=== PATIENT | male | born 1985 | race Caucasian/White ===

== ENCOUNTER 2025-04-29 08:10 | Outpatient (REF) | payer BC, SELFPAY ==
--- NOTE | ~2025-04-29 | XR_ITS ---
XR KNEE ARVIND 3V HISTORY: Bilateral knee pain. COMPARISON: None. TECHNIQUE: AP , lateral, and patellofemoral views each knee. FINDINGS: RIGHT KNEE: No fracture, dislocation, or suspicious bone lesion. Joint spaces are normal in all 3 compartments. Normal patellar alignment. Minimal lateral patellar tilt. No evidence of joint effusion. Soft tissues appear normal. LEFT KNEE: No fracture, dislocation, or suspicious bone lesion. Joint spaces are normal in all 3 compartments. Normal patellar alignment. Minimal lateral patellar tilt. No evidence of joint effusion. Soft tissues appear normal. XR/XR Knee Arvind 3V IMPRESSION: 1. Essentially normal bilateral knees. Electronically signed by: Oliver Stapleton MD 04/29/2025 02:47 PM EDT
== END 2025-04-29 08:11 | disposition home or self-care (01) ==
LOC: HO.HOSX 08:10
PROVIDERS: Visit Provider Orthopaedic Surgery
DX: S83.242A Other tear of medial meniscus, current injury, left knee, initial encounter (principal); Y93.66 Activity, soccer
CPT/HCPCS: 73562

== ENCOUNTER 2025-04-29 13:33 | Outpatient (AMB) | payer BC, SELFPAY ==
--- NOTE | 2025-04-29 14:06 | MHC.OFFVIS ---
Vital Signs 04/29/25 14:12 Height 5 ft 9 in Weight 260 lb BMI 38.4 Intake Visit Reasons: Bilateral knee pain and giving way Intake Note: Suhail is a 39 year old male who presents today as new patient for bilateral knee pain and giving way, left greater than right. Patient states that for the past ten years he has had bilateral knee pain but for the past three he has noticed that the knee pain now radiates behind the knee. He added that he is very active and try's to do at home exercises, attend the gym but is limited due to the pain. He states that he would like to discuss his ankle pain as well. He has failed the last 6 weeks of conservative treatment which has included Tylenol, anti-inflammatory medicines, physical therapy exercises and a home exercise program. He states that his left knee will give out several times per day. The patient states that he did injure his left knee while playing soccer and baseball as a youngster. 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 Vital Signs: BMI result Body Mass Index 38.4 Const Other: Well-nourished well-developed very friendly male awake alert and oriented x3 in no acute distress Extrem Other: Bilateral knee examination shows minimal effusions, minimal crepitus with range of motion, tenderness along his medial joint lines, positive Blank's test, no instability Results Reviewed Results Reviewed: X-rays of the patient's bilateral knee show minimal diffuse joint space narrowing, no acute bony abnormalities Assessment & Plan Assessment & Plan (1) Tear of medial meniscus of left knee: Code(s): S83.242A - Other tear of medial meniscus, current injury, left knee, initial encounter Category: Medical Plan Mr. Quach presents with progressively worsening left knee pain and mechanical symptoms most likely due to a medial meniscus tear. Thus, I will send the patient for an MRI of his left knee for further evaluation. The patient also complains of bilateral foot and ankle pain. I will refer him to the podiatry department here at [facility]. I will see him back after his MRI is completed to discuss the findings and treatment options. Feel free to call me at any time should questions regarding his orthopedic management arise. I spent 21 minutes in reviewing the patient's records and imaging studies, seeing the patient and documenting in the medical record. Orders: Orders MR knee LT wo con 04/30/25 S83.242A - Other tear of medial meniscus, current injury, left knee, initial encounter XR Knee Arvind 3V Today M25.561 - Pain in right knee, M25.562 - Pain in left knee Referrals Podiatry Referral M79.671 - Pain in right foot, M79.672 - Pain in left foot Coding Level of Care Code New Pt Level 3 (90880) Complex EM visit Add On G2211 Diagnoses Tear of medial meniscus of left knee S83.242A
[2025-04-29 14:12] VITALS: BMI 38.4
== END 2025-04-29 14:22 | disposition home or self-care (01) ==
LOC: HO.HOS 13:34
PROVIDERS: Visit Provider Orthopaedic Surgery
DX: S83.242A Other tear of medial meniscus, current injury, left knee, initial encounter (principal)
CPT/HCPCS: 99203

== ENCOUNTER → 2025-04-29 13:38 | Outpatient (BNV) | payer BC, SELFPAY | PROVIDERS: Visit Provider Radiology Diagnostic Radiology | DX: M25.561 Pain in right knee (principal); M25.562 Pain in left knee | CPT/HCPCS: 73562 ==

== ENCOUNTER 2025-05-14 12:59 | Outpatient (AMB) | payer BC, SELFPAY ==
[2025-05-14 13:32] VITALS: BMI 38.4
--- NOTE | 2025-05-14 13:32 | A.OFFVIS_ITS ---
Vital Signs 05/14/25 13:32 Height 5 ft 9 in Weight 260 lb BMI 38.4 Intake Visit Reasons: Pain in right foot Intake Note: Issac is a 39 year old male who presents to the office today for a new patient visit referred by his Orthopedist Dr. Banegas for Pain in the right foot. Pt states he experiences pain in both of his feet on the plantar aspect and ankle. Pain has been going on for about 4-5 years. He states he has tried ankle braces, epson salt soaks and has found temporary relief. No recent imaging in patients chart Allergies aspirin (ASPIRIN) Allergy (Unknown, Verified 05/14/25 13:33) UNKNOWN codeine (CODEINE) Allergy (Unknown, Verified 05/14/25 13:33) UNKNOWN Penicillins (PENICILLINS) Allergy (Unknown, Verified 05/14/25 13:33) UNKNOWN HPI HPI Pain in right foot: Details: 39-year-old male with past medical history of bilateral knee pain presents for bilateral ankle and foot pain. Patient notes a history of bilateral lower extremity pain that started approximately 5 years ago and has slowly worsened. Denies any acute injuries or falls. He does note a history of hyperextending his ankles 20 years ago during college however he never had it treated at that time. The patient complains of pain to the back of his heel on his right ankle and the ball of his foot on his left foot. He also notes pain to the bottom of his heels both feet. He states he has tried several different kinds of shoes and has not found significant relief between various sneakers. 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 States he has not worked out or played sports in years. 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 Neuro: Protective sensation grossly intact to bilateral extremities MSK: Moderate tenderness on palpation of the posterior tibial tendon retromalleolar region right ankle, Achilles tendon insertional proximally for 2 cm from the insertion bilateral Achilles, and mild tenderness on palpation of the plantar fascia insertion bilateral heels. Moderate tenderness on palpation of the submet 2 through 4 region of the left forefoot. Rigid high arch cavus deformity right foot, moderate high arch cavus deformity left foot which corrects on weight-bearing. Neutral heel alignment bilateral heels on weight-bearing. Patient able to perform double heel rise, single heel rise on left lower extremity, unable to perform heel rise right lower extremity. Muscle strength 5/5 to all compartments left ankle except 4+/5 on inversion to bilateral ankles. Assessment & Plan Assessment & Plan (1) Cavus deformity of both feet: Code(s): Q66.71 - Congenital pes cavus, right foot; Q66.72 - Congenital pes cavus, left foot Category: Medical Plan: * Educated the patient on their foot type. Explained that their high arch foot type (Cavus feet) can lead to altered weight distribution, resulting in increased pressure on the heel and forefoot. Patients may experience symptoms such as pain, callus formation, tendinitis, instability, lateral ankle sprains, and, in some cases, development of digital deformities (e.g., claw toes or hammertoes). Discussed the importance of shoe type with heel and forefoot padding and support. * He was recommended aetrex high arch orthotics with metatarsal pad support. He may require custom foot orthoses in the future. * Rx bilateral weight-bearing foot/ankle/calc x-rays. * Discussed that he has rigid high arch feet with symptomatic forefoot, heel, and ankle tendonitis. He may require surgical reconstruction of his high arch in the near future. We recommended exhausting conservative treatment first with the use of orthotics, bracing, and physical therapy. (2) Metatarsalgia of both feet: Code(s): M77.41 - Metatarsalgia, right foot; M77.42 - Metatarsalgia, left foot Category: Medical Plan: * Recommended orthotics with metatarsal padding (3) Achilles tendinitis: Code(s): M76.60 - Achilles tendinitis, unspecified leg Category: Medical Qualifiers: Laterality: bilateral Qualified Code(s): M76.61 - Achilles tendinitis, right leg; M76.62 - Achilles tendinitis, left leg Plan: * Recommended range of motion and stretching exercises * Patient deferred physical therapy at this time. We will refer him at next visit if he has minimal relief. * Rx Medrol Dosepak * Rx Celebrex, to be started after he completes the Dosepak. * May require MRI right ankle to r/o intra-substance tearing (4) Posterior tibial tendinitis, right leg: Code(s): M76.821 - Posterior tibial tendinitis, right leg Category: Medical Plan: * Recommended range of motion and stretching exercises (5) Tinea pedis: Code(s): B35.3 - Tinea pedis Category: Medical Qualifiers: Laterality: bilateral Qualified Code(s): B35.3 - Tinea pedis Plan: * Rx clotrimazole betamethasone Orders: Orders XR Foot Arvind 3V Today M77.41 - Metatarsalgia, right foot, M77.42 - Metatarsalgia, left foot XR Calcaneus Arvind min 2V Today Q66.71 - Congenital pes cavus, right foot, Q66.72 - Congenital pes cavus, left foot XR Ankle Arvind min 3V Today M76.60 - Achilles tendinitis, unspecified leg Medications: New clotrimazole-betamethasone 1-0.05 % 1 appl topical BID 15 grams 2RF athlete's foot 4 weeks B35.3 - Tinea pedis methylprednisolone (Medrol (Alex)) Take 6 tablets on day 1, 5 tablets on day 2, 4 tablets on day 3, 3 tablets on day 4, 2 tablets on day 5, and 1 tablet on day 6. 4 mg PO DAILY 21 ea 0RF tendinitis celecoxib (Celebrex) 200 mg PO BID PRN 20 caps 1RF pain (scale score 4-6) Coding Level of Care Code New Pt Level 4 (19097) Diagnoses Cavus deformity of both feet Q66.71; Q66.72 Metatarsalgia of both feet M77.41; M77.42 Achilles tendinitis of both lower extremities M76.61; M76.62 Laterality: bilateral Posterior tibial tendinitis, right leg M76.821 Tinea pedis of both feet B35.3 Laterality: bilateral Time Spent (min) 45
== END 2025-05-14 14:03 | disposition home or self-care (01) ==
LOC: HO.HPODS 13:00
PROVIDERS: Visit Provider Student in an Organized Health Care Education/Training Program
DX: Q66.71 Congenital pes cavus, right foot (principal); Q66.72 Congenital pes cavus, left foot; M77.41 Metatarsalgia, right foot; M77.42 Metatarsalgia, left foot; M76.61 Achilles tendinitis, right leg; M76.62 Achilles tendinitis, left leg; M76.821 Posterior tibial tendinitis, right leg; B35.3 Tinea pedis
CPT/HCPCS: 99204

== ENCOUNTER 2025-05-15 12:41 | Outpatient (REF) | payer BC, SELFPAY ==
--- NOTE | ~2025-05-15 | XR_ITS ---
EXAMINATION: XR ANKLE, bilateral CLINICAL INFORMATION: M76.60 - Achilles tendinitis, unspecified leg COMPARISON: None available. TECHNIQUE: AP, lateral, and mortise views lower extremity joint, ankle. FINDINGS: RIGHT: Ankle mortise is congruent. There is no widening of the syndesmosis. Talar dome is intact. There is a moderate sized Achilles calcaneal enthesophyte(s). LEFT: Ankle mortise is congruent. There is no widening of the syndesmosis. Talar dome is intact. There is a moderate sized Achilles calcaneal enthesophyte(s). XR/XR Ankle Arvind min 3V IMPRESSION: Unremarkable ankle x-ray. Electronically signed by: James Coffman MD 05/15/2025 01:18 PM EDT
--- NOTE | ~2025-05-15 | XR_ITS ---
Exam: XR FOOT 3 OR MORE VIEWS BILATERAL, bilateral foot x-rays TECHNIQUE: AP, OBL and lateral views lower extremity, bilateral feet INDICATION: M77.41 - Metatarsalgia, right foot COMPARISON: None available. FINDINGS: RIGHT FOOT: Joint spaces are preserved. There are no osteophytes. No fracture is identified. There is no joint diastases or malalignment. LEFT FOOT: Joint spaces are preserved. There are no osteophytes. No fracture is identified. There is no joint diastases or malalignment. XR/XR Foot Arvind 3V IMPRESSION: Right foot: Unremarkable Left foot: Unremarkable Electronically signed by: James Coffman MD 05/15/2025 01:20 PM EDT RP
--- NOTE | ~2025-05-15 | XR_ITS ---
Exam:CR Xr Calcaneus Arvind Min 2v Technique: Axial and lateral view, bilateral calcaneus INDICATION: Q66.71 - Congenital pes cavus, right foot Prior: None FINDINGS: Right Moderate size enthesophyte is present at the Achilles attachment on calcaneus. No abnormal sclerosis or lucency is seen within the bony elements. No degenerative changes are identified otherwise. Left: Moderate size enthesophyte is present at the Achilles attachment on calcaneus. No degenerative changes are identified otherwise. No abnormal sclerosis or lucency is seen within the bony elements. XR/XR Calcaneus Arvind min 2V IMPRESSION: Moderate sized Achilles tendon calcaneal spurs Electronically signed by: James Coffman MD 05/15/2025 01:16 PM EDT
== END 2025-05-15 12:42 | disposition home or self-care (01) ==
LOC: HO.XRAY 12:41
PROVIDERS: Visit Provider Student in an Organized Health Care Education/Training Program
DX: M77.41 Metatarsalgia, right foot (principal); M77.42 Metatarsalgia, left foot; Q66.71 Congenital pes cavus, right foot; Q66.72 Congenital pes cavus, left foot
CPT/HCPCS: 73610; 73630; 73650

== ENCOUNTER → 2025-05-15 12:46 | Outpatient (BNV) | payer BC, SELFPAY | PROVIDERS: Visit Provider Radiology Diagnostic Radiology | DX: M76.61 Achilles tendinitis, right leg (principal); M76.62 Achilles tendinitis, left leg; M77.41 Metatarsalgia, right foot; M77.31 Calcaneal spur, right foot; M77.32 Calcaneal spur, left foot | CPT/HCPCS: 73610; 73630; 73650 ==

== ENCOUNTER → 2025-05-24 09:26 | Outpatient (BNV) | payer BC, SELFPAY | PROVIDERS: Visit Provider Radiology Diagnostic Ultrasound | DX: S83.242A Other tear of medial meniscus, current injury, left knee, initial encounter (principal); M23.032 Cystic meniscus, other medial meniscus, left knee | CPT/HCPCS: 73721 ==

== ENCOUNTER 2025-05-24 09:33 | Outpatient (REF) | payer BC, SELFPAY ==
--- NOTE | ~2025-05-24 | MR_ITS ---
EXAMINATION: MR KNEE WITHOUT CONTRAST, LEFT CLINICAL INFORMATION: Medial meniscal tear COMPARISON: X-ray 04/29/2025 TECHNIQUE: MRI of the knee without contrast was performed using routine sequences on a high-field scanner. FINDINGS: MENISCI: Medial Meniscus: Intact Lateral Meniscus: Horizontal and superior surface tear in the body. Small subjacent para meniscal cyst. Degeneration in the body, with fraying/ill-defined tear of the superior and inferior articular surface. There is a para meniscal cyst along the peripheral aspect of the posterior horn. LIGAMENTS: Cruciate: Intact Collateral: Intact EXTENSOR MECHANISM: Intact ARTICULAR CARTILAGE/BONE: Patellofemoral Compartment: No significant chondral loss Medial Compartment: No significant chondral loss Lateral Compartment: No significant chondral loss No fracture. No suspicious bony lesion. JOINT FLUID AND BURSAE: Small joint fluid. Trace Xie's cyst. Popliteus muscle and tendon are intact. MR/MR knee LT wo con IMPRESSION: * Tear of the lateral meniscal body and posterior horn. Subjacent para meniscal cysts. * Additional findings/details as above Electronically signed by: Freddie Wong MD 05/25/2025 04:32 PM [facility] [place]
== END 2025-05-24 09:34 | disposition home or self-care (01) ==
LOC: HO.MRI 09:33
PROVIDERS: Visit Provider Orthopaedic Surgery
DX: S83.242A Other tear of medial meniscus, current injury, left knee, initial encounter (principal)
CPT/HCPCS: 73721

== ENCOUNTER 2025-06-04 11:22 | Outpatient (AMB) | payer BC, SELFPAY ==
--- NOTE | 2025-06-04 11:31 | MHC.OFFVIS ---
Vital Signs 06/04/25 12:58 Height 5 ft 9 in Weight 260 lb BMI 38.4 Intake Visit Reasons: fu pain on right foot Intake Note: Issac is a 39 year old male who presents to the office today for a follow up for bilateral Achilles tendinitis, pain, and high arches. Patient was advised at last visit to start range of motion and stretching exercises and metatarsal pads. X rays ordered and in patient?s chart. Patient reports he has seen a slight improvement since his last visit as he mentions now he is able to put his feet on the ground with no pain. Allergies aspirin (ASPIRIN) Allergy (Unknown, Verified 06/04/25 12:59) UNKNOWN codeine (CODEINE) Allergy (Unknown, Verified 06/04/25 12:59) UNKNOWN Penicillins (PENICILLINS) Allergy (Unknown, Verified 06/04/25 12:59) UNKNOWN HPI HPI fu pain on right foot: Details: 39-year-old male with past medical history of bilateral knee pain returns for bilateral ankle and foot pain. He completed the medrol dose pack and found mild relief, able to put his feet down with less pain. He still has pain and difficulty walking. He did not take the celebrex. He is performing exercises daily in the morning. He also purchased several orthotics and has been seeing some relief with them. History: Patient notes a history of bilateral lower extremity pain that started approximately 5 years ago and has slowly worsened. Denies any acute injuries or falls. He does note a history of hyperextending his ankles 20 years ago during college however he never had it treated at that time. The patient complains of pain to the back of his heel on his right ankle and the ball of his foot on his left foot. He also notes pain to the bottom of his heels both feet. He states he has tried several different kinds of shoes and has not found significant relief between various sneakers. 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 States he has not worked out or played sports in years. 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 Neuro: Protective sensation grossly intact to bilateral extremities MSK: Mild tenderness on palpation of the posterior tibial tendon retromalleolar region right ankle, Moderate tenderness on palpation of the Achilles tendon insertional proximally for 2 cm from the insertion bilateral Achilles, Moderate tenderness on palpation of the plantar fascia insertion bilateral heels. Moderate tenderness on palpation of the submet 2 through 4 region of the left forefoot. Rigid high arch cavus deformity right foot, moderate high arch cavus deformity left foot which corrects on weight-bearing. Neutral heel alignment bilateral heels on weight-bearing. Patient able to perform double heel rise, single heel rise on left lower extremity, unable to perform heel rise right lower extremity. Muscle strength 5/5 to all compartments left ankle except 4+/5 on inversion to bilateral ankles. Office Procedures AMB Flexor Tendon/Plantar POD Tendon Injection Details of AMB Procedure: Procedure: Steroid injection Location: Right heel Medication: 1.5cc 0.5% bupivicaine, 1cc dexamethasone, 0.5cc kenalog? Description: The right heel was prepped using alcohol. A steroid injection was administered using sterile technique. The site was dressed using a band-aid. Post-procedure Instructions: The patient was instructed to apply ice to the injection site. The patient was advised to call the office if there are signs or symptoms of worsening pain, infection, or steroid flare. Tendon Injection POD1: - Plantar Fascia Injection All charges added?: Procedure code (CPT) selection complete Office Meds triamcinolone acetonide 40 mg/mL suspension for injection Performing Provider: Raymond Dietrich DPM Performing Location: [facility] Administered by: Raymond Dietrich DPM on 06/04/25 21:59 Dose Route Admin Location Dispensed Lot Number Expiration Date [facility] [employer] 20 mg Tendon Sheath Inj. 1 mL [id number] [employer] Total Dispensed Waste 1 mL 50 % dexamethasone sodium phosphate 4 mg/mL injection solution Performing Provider: Raymond Dietrich DPM Performing Location: [facility] Administered by: Raymond Dietrich DPM on 06/04/25 21:59 Dose Route Admin Location Dispensed Lot Number Expiration Date [facility] [employer] 4 mg Tendon Sheath Inj. 1 mL [id number] [employer] Total Dispensed Waste 1 mL 0 % bupivacaine (PF) 0.5 % (5 mg/mL) injection solution Performing Provider: Raymond Dietrich DPM Performing Location: [facility] Administered by: Raymond Dietrich DPM on 06/04/25 21:59 Dose Route Admin Location Dispensed Lot Number Expiration Date [facility] [employer] 2 mL intra-articular 10 mL [id number] [employer] Total Dispensed Waste 10 mL 80 % Results Reviewed Results Reviewed: X-ray Read: 05/15/2025 X-ray right foot 3 views (AP, MO, Lateral) reviewed which shows moderate insertional achilles spur. CI angle 22 degrees. TN 80% covered. Lateral Meary's angle 7 degrees. no fractures, dislocations, or gross abnormalities. Bone density is within normal limits. I personally reviewed the imaging and my findings are listed above. X-ray Read: 05/15/2025 X-ray right ankle 3 views (AP, Mortise, Lateral) reviewed which shows exostosis to the anterior tibia plafond, and exostosis to dorsal talar neck. No fractures, dislocations, osteochondral defects, or gross abnormalities. Anatomic alignment of the tibiotalar joint. Bone density is within normal limits. No evidence of swelling, foreign body, or calcifications. I personally reviewed the imaging and my findings are listed above. X-ray Read: 05/15/2025 X-ray left foot 3 views (AP, MO, Lateral) reviewed which shows moderate insertional calcaneal spur. CI angle 18 degrees. TN 80% covered. Lateral Meary's angle 9 degrees. no fractures, dislocations, or gross abnormalities. Bone density is within normal limits. I personally reviewed the imaging and my findings are listed above. X-ray Read: 05/15/2025 X-ray left ankle 3 views (AP, Mortise, Lateral) reviewed which shows mild insertional achilles spur. No fractures, dislocations, osteochondral defects, or gross abnormalities. Anatomic alignment of the tibiotalar joint. Bone density is within normal limits. No evidence of swelling, foreign body, or calcifications. I personally reviewed the imaging and my findings are listed above. X-ray Read: 05/15/2025 X-ray right calc 2 views (Axial, Lateral) reviewed which shows neutral calcaneal alignment. No coalition. I personally reviewed the imaging and my findings are listed above. X-ray Read: 05/15/2025 X-ray left calc 2 views (Axial, Lateral) reviewed which shows neutral calcaneal alignment. No coalition. I personally reviewed the imaging and my findings are listed above. Assessment & Plan Assessment & Plan (1) Plantar fasciitis, bilateral: Code(s): M72.2 - Plantar fascial fibromatosis Category: Medical Plan: Administered steroid injection to the right plantar medial calcaneal tubercle. Continue stretching exercises. Dispensed night splints. Referred to physical therapy. Follow up in 1 month (2) Achilles tendinitis: Comment: bilateral, R?L Code(s): M76.60 - Achilles tendinitis, unspecified leg Category: Medical Qualifiers: Laterality: bilateral Qualified Code(s): M76.61 - Achilles tendinitis, right leg; M76.62 - Achilles tendinitis, left leg Plan: Instructed to begin Celebrex. Referred to physical therapy May require MRI in the future to evaluate insertional microtearing. (3) Cavus deformity of both feet: Code(s): Q66.71 - Congenital pes cavus, right foot; Q66.72 - Congenital pes cavus, left foot Category: Medical Plan: Educated the patient on their foot type. Explained that their high arch foot type (Cavus feet) can lead to altered weight distribution, resulting in increased pressure on the heel and forefoot. Patients may experience symptoms such as pain, callus formation, tendinitis, instability, lateral ankle sprains, and, in some cases, development of digital deformities (e.g., claw toes or hammertoes). Discussed the importance of shoe type with heel and forefoot padding and support. Reviewed x-rays with the patient. Continue high arch orthotics with metatarsal pad support. He may require custom foot orthoses in the future. Discussed that he has rigid high arch feet with symptomatic forefoot, heel, and ankle tendonitis. He may require surgical reconstruction of his high arch in the near future. We recommended exhausting conservative treatment first with the use of orthotics, bracing, and physical therapy. (4) Metatarsalgia of both feet: Code(s): M77.41 - Metatarsalgia, right foot; M77.42 - Metatarsalgia, left foot Category: Medical Plan: Continue orthotics with metatarsal padding (5) Posterior tibial tendinitis, right leg: Code(s): M76.821 - Posterior tibial tendinitis, right leg Category: Medical Plan: Referred to physical therapy (6) Tinea pedis: Code(s): B35.3 - Tinea pedis Category: Medical Qualifiers: Laterality: bilateral Qualified Code(s): B35.3 - Tinea pedis Plan: Continue clotrimazole betamethasone Orders: Orders PT Evaluation and Treatment Today M72.2 - Plantar fascial fibromatosis, M76.61 - Achilles tendinitis, right leg, M76.62 - Achilles tendinitis, left leg AMB Flexor Tendon / Plantar Fascia Injection Today M72.2 - Plantar fascial fibromatosis Coding Level of Care Code Est Pt Level 4 (54701) Diagnoses Plantar fasciitis, bilateral M72.2 Achilles tendinitis of both lower extremities M76.61; M76.62 Laterality: bilateral Cavus deformity of both feet Q66.71; Q66.72 Metatarsalgia of both feet M77.41; M77.42 Posterior tibial tendinitis, right leg M76.821 Tinea pedis of both feet B35.3 Laterality: bilateral CPT Codes Tendon Injection - Tendon Injection POD1: - Plantar Fascia Injection ([id number]) Time Spent (min) 35
[2025-06-04 12:58] VITALS: BMI 38.4
== END 2025-06-04 12:13 | disposition home or self-care (01) ==
LOC: HO.HPODS 11:22
PROVIDERS: Visit Provider Student in an Organized Health Care Education/Training Program
DX: M72.2 Plantar fascial fibromatosis (principal); M76.61 Achilles tendinitis, right leg; M76.62 Achilles tendinitis, left leg; Q66.71 Congenital pes cavus, right foot; Q66.72 Congenital pes cavus, left foot; M77.41 Metatarsalgia, right foot; M77.42 Metatarsalgia, left foot; M76.821 Posterior tibial tendinitis, right leg; B35.3 Tinea pedis
CPT/HCPCS: 20550; 99214

== ENCOUNTER → 2025-06-04 11:22 | Outpatient (BNVA) | payer BC, SELFPAY | PROVIDERS: Visit Provider Student in an Organized Health Care Education/Training Program | DX: M76.61 Achilles tendinitis, right leg (principal); M76.62 Achilles tendinitis, left leg; Q66.71 Congenital pes cavus, right foot; Q66.72 Congenital pes cavus, left foot; M77.41 Metatarsalgia, right foot; M77.42 Metatarsalgia, left foot; B35.3 Tinea pedis | CPT/HCPCS: 20550; J0665; J1100; J3301 ==

== ENCOUNTER 2025-06-25 12:57 | Outpatient (AMB) | payer BC, SELFPAY ==
[2025-06-25 13:02] VITALS: BMI 38.4
--- NOTE | 2025-06-25 13:02 | MHC.OFFVIS ---
Vital Signs 06/25/25 13:02 Height 5 ft 9 in Weight 260 lb BMI 38.4 Intake Visit Reasons: OV-MRI review of left knee Intake Note: Suhail is a 39 year old male who presents today as new patient for bilateral knee pain and giving way, left greater than right. Patient states that for the past ten years he has had bilateral knee pain but for the past three he has noticed that the knee pain now radiates behind the knee. He added that he is very active and try's to do at home exercises, attend the gym but is limited due to the pain. He has failed the last 6 weeks of conservative treatment which has included Tylenol, anti-inflammatory medicines, physical therapy exercises and a home exercise program. He states that his left knee will give out several times per day. The patient states that he did injure his left knee while playing soccer and baseball as a youngster. 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 Quach presents with left knee pain and mechanical symptoms due to a lateral meniscus tear. I had a lengthy discussion with the patient regarding the treatment options. Because of the patient's young age he may be a candidate for a meniscus repair instead of a partial meniscectomy. Thus, I will have him evaluated by my partner, Dr. Connell, for further information regarding his surgical treatment options. He will follow up as instructed. Feel free to call me at any time should questions regarding his orthopedic management arise. I spent 20 minutes in reviewing the patient's records and imaging studies, seeing the patient and documenting in the medical record. Coding Level of Care Code Est Pt Level 3 (82137) Add On Problem Visit Only Diagnoses Tear of lateral meniscus of left knee S83.282A
== END 2025-06-25 13:30 | disposition home or self-care (01) ==
LOC: HO.HOS 12:58
PROVIDERS: Visit Provider Orthopaedic Surgery
DX: S83.282A Other tear of lateral meniscus, current injury, left knee, initial encounter (principal)
CPT/HCPCS: 99213

== ENCOUNTER → 2025-06-25 12:57 | Outpatient (BNVA) | payer BC, SELFPAY | PROVIDERS: Visit Provider Orthopaedic Surgery | DX: S83.282A Other tear of lateral meniscus, current injury, left knee, initial encounter (principal); M72.2 Plantar fascial fibromatosis; M76.62 Achilles tendinitis, left leg; M76.61 Achilles tendinitis, right leg; M77.8 Other enthesopathies, not elsewhere classified; M76.821 Posterior tibial tendinitis, right leg; Q66.72 Congenital pes cavus, left foot; Q66.71 Congenital pes cavus, right foot; B35.3 Tinea pedis | CPT/HCPCS: 20550; 20600; J0665; J1100; J2003; J3301 ==

== ENCOUNTER 2025-06-25 14:22 | Outpatient (AMB) | payer BC, SELFPAY ==
--- NOTE | 2025-06-25 14:42 | A.OFFVIS_ITS ---
Vital Signs 06/25/25 15:01 Height 5 ft 9 in Weight 260 lb BMI 38.4 Intake Visit Reasons: fu pain on right foot Intake Note: Issac is a 39 year old male who presents to the office today for a follow up for his right foot pain. At last visit steroid injection to the right plantar medial calcaneal tubercle was administered and pt was instructed to continue wearing orthotics with metatarsal padding. Pt is taking celebrex and has PT appt on 06/30. He has not been taking the celebrex however he has been wearing the orthotics with the metatarsal pads. Patient states he is experiencing pain bilaterally. On his left the pain is located on the arch and ball of his foot between the 4th and 5th toe and for his right foot it runs throughout the whole foot. Allergies aspirin (ASPIRIN) Allergy (Unknown, Verified 06/25/25 13:02) UNKNOWN codeine (CODEINE) Allergy (Unknown, Verified 06/25/25 13:02) UNKNOWN Penicillins (PENICILLINS) Allergy (Unknown, Verified 06/25/25 13:02) UNKNOWN HPI HPI fu pain on right foot: Details: 39-year-old male with past medical history of bilateral knee pain returns for bilateral ankle and foot pain. He is scheduled to start physical therapy next week, has been performing [id number] exercises at home daily. He is using the [employer] orthotics. He states that the heel injection last visit to his right foot had significantly resolved most of his pain however 2 days ago, the pain started returning. He is now also experiencing pain to the front of his left foot. Also notes a recent orthopedic evaluation for left knee, MRI positive for a meniscus tear. History: Patient notes a history of bilateral lower extremity pain that started approximately 5 years ago and has slowly worsened. Denies any acute injuries or falls. He does note a history of hyperextending his ankles 20 years ago during college however he never had it treated at that time. The patient complains of pain to the back of his heel on his right ankle and the ball of his foot on his left foot. He also notes pain to the bottom of his heels both feet. He states he has tried several different kinds of shoes and has not found significant relief between various sneakers. States he has not worked out or played sports in years. 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 Neuro: Protective sensation grossly intact to bilateral extremities MSK: Mild tenderness on palpation of the posterior tibial tendon retromalleolar region right ankle, Moderate tenderness on palpation of the Achilles tendon insertional proximally for 2 cm from the insertion bilateral Achilles, Moderate tenderness on palpation of the plantar fascia insertion bilateral heels, left worse than right. Moderate tenderness on palpation of the submet 2 through 4 region of the left forefoot. Rigid high arch cavus deformity right foot, moderate high arch cavus deformity left foot which corrects on weight-bearing. Neutral heel alignment bilateral heels on weight-bearing. Patient able to perform double heel rise, single heel rise on left lower extremity, unable to perform single heel rise right lower extremity. Muscle strength 5/5 to all compartments left ankle except 4+/5 on inversion to bilateral ankles. Office Procedures AMB Flexor Tendon/Plantar POD Tendon Injection Details of AMB Procedure: Procedure: Steroid injection Location: Left foot plantar fascia Medication: 1.5cc 0.5% bupivicaine, 1cc dexamethasone, 0.5cc kenalog? Description: The left foot was prepped using alcohol. A steroid injection was administered using sterile technique. The site was dressed using a band-aid. Post-procedure Instructions: The patient was instructed to apply ice to the injection site. The patient was advised to call the office if there are signs or symptoms of worsening pain, infection, or steroid flare. Tendon Injection POD1: - Plantar Fascia Injection All charges added?: Procedure code (CPT) selection complete AMB Joint Injection/Aspir Pod Joint Injection/Aspiration Podiatry: Procedure: Steroid injection Location: Left 4th Metatarsal-phalangeal joint and 4th interspace Medication: 1.5cc 0.5% bupivicaine, 1cc dexamethasone, 0.5cc kenalog? Description: The left foot was prepped using alcohol. A steroid injection was administered using sterile technique. The site was dressed using a band-aid. Post-procedure Instructions: The patient was instructed to apply ice to the injection site. The patient was advised to call the office if there are signs or symptoms of worsening pain, infection, or steroid flare. LT - Injection of small joint LT Procedure code (CPT) selection complete Office Meds triamcinolone acetonide 40 mg/mL suspension for injection Performing Provider: Raymond Dietrich DPM Performing Location: [facility] – [place], [place] [facility] Administered by: Raymond Dietrich DPM on 06/25/25 19:14 Dose Route Admin Location Dispensed Lot Number Expiration Date [facility] [place]NOTE 2] [employer] 20 mg Tendon Sheath Inj. 1 mL [address]-6 [employer] Total Dispensed Waste 1 mL 50 % dexamethasone sodium phosphate 4 mg/mL injection solution Performing Provider: Raymond Dietrich DPM Performing Location: [facility] [place], [place] [facility] Administered by: Raymond Dietrich DPM on 06/25/25 19:14 Dose Route Admin Location Dispensed Lot Number Expiration Date [facility] [place]NOTE 2] [employer] 4 mg Tendon Sheath Inj. 1 mL [id number] [employer] Total Dispensed Waste 1 mL 0 % bupivacaine (PF) 0.5 % (5 mg/mL) injection solution Performing Provider: Raymond Dietrich DPM Performing Location: [facility] [place], [place] [facility] Administered by: Raymond Dietrich DPM on 06/25/25 19:14 Dose Route Admin Location Dispensed Lot Number Expiration Date [facility] [place]NOTE 2] [employer] 2 mL intra-articular 10 mL [id number] [employer] Total Dispensed Waste 10 mL 80 % triamcinolone acetonide 40 mg/mL suspension for injection Performing Provider: Raymond Dietrich DPM Performing Location: [facility] [place], [place] [facility] Administered by: Raymond Dietrich DPM on 06/25/25 19:13 Dose Route Admin Location Dispensed Lot Number Expiration Date [facility] [place]NOTE 2] [employer] 20 mg intra-articular 1 mL [id number] [employer] Total Dispensed Waste 1 mL 50 % dexamethasone sodium phosphate 4 mg/mL injection solution Performing Provider: Raymond Dietrich DPM Performing Location: [facility] [place], [place] [facility] Administered by: Raymond Dietrich DPM on 06/25/25 19:13 Dose Route Admin Location Dispensed Lot Number Expiration Date [facility] [place]NOTE 2] [employer] 4 mg intra-articular 1 mL [id number] OLVIN GONZALEZ Total Dispensed Waste 1 mL 0 % lidocaine HCl 10 mg/mL (1 %) injection solution Performing Provider: Raymond Dietrich DPM Performing Location: [facility] [place] [place] [facility] Administered by: Raymond Dietrich DPM on 06/25/25 19:13 Dose Route Admin Location Dispensed Lot Number Expiration Date [facility] [place]NOTE 2] [employer] 2 mL intra-articular 2 mL [id number] Total Dispensed Waste 2 mL 0 % Assessment & Plan Assessment & Plan (1) Plantar fasciitis, bilateral: Code(s): M72.2 - Plantar fascial fibromatosis Category: Medical Plan: * Right foot: S/p 1 steroid injection 06/04/2025. * Administered steroid injection to the left heel. * Continue stretching exercises. * Continue night splints. * Instructed to complete physical therapy course. * Follow up in 1 month (2) Achilles tendinitis: Comment: bilateral, R>L Code(s): M76.60 - Achilles tendinitis, unspecified leg Category: Medical Qualifiers: Laterality: bilateral Qualified Code(s): M76.61 - Achilles tendinitis, right leg; M76.62 - Achilles tendinitis, left leg Plan: * Continue physical therapy. Work forms filled to excuse pt for PT sessions * Referred for bilateral ankle MRI to evaluate for insertional Achilles micro tearing and tendinosis. (3) Capsulitis of left foot: Code(s): M77.8 - Other enthesopathies, not elsewhere classified Category: Medical Plan: * Administered steroid injection to the left 4th Metatarsal-phalangeal joint and 4th interspace * Continue orthotics * Continue Achilles tendon stretching. Improvement in his equinus contracture will help offload the forefoot. (4) Posterior tibial tendinitis, right leg: Code(s): M76.821 - Posterior tibial tendinitis, right leg Category: Medical Plan: * Referred for MRI * Pending physical therapy (5) Cavus deformity of both feet: Code(s): Q66.71 - Congenital pes cavus, right foot; Q66.72 - Congenital pes cavus, left foot Category: Medical Plan: * Educated the patient on their foot type. Explained that their high arch foot type (Cavus feet) can lead to altered weight distribution, resulting in increased pressure on the heel and forefoot. Patients may experience symptoms such as pain, callus formation, tendinitis, instability, lateral ankle sprains, and, in some cases, development of digital deformities (e.g., claw toes or hammertoes). Discussed the importance of shoe type with heel and forefoot padding and support. * Reviewed x-rays with the patient. * Continue high arch orthotics with metatarsal pad support. He may require custom foot orthoses in the future. * Discussed that he has rigid high arch feet with symptomatic forefoot, heel, and ankle tendonitis. He may require surgical reconstruction of his high arch in the near future. We recommended exhausting conservative treatment first with the use of orthotics, bracing, and physical therapy. (6) Tinea pedis: Code(s): B35.3 - Tinea pedis Category: Medical Qualifiers: Laterality: bilateral Qualified Code(s): B35.3 - Tinea pedis Plan: * Continue clotrimazole betamethasone Orders: Orders MR ankle LT wo con Today M72.2 - Plantar fascial fibromatosis, M76.61 - Achilles tendinitis, right leg, M76.62 - Achilles tendinitis, left leg MR ankle RT wo con Today M72.2 - Plantar fascial fibromatosis, M76.61 - Achilles tendinitis, right leg, M76.62 - Achilles tendinitis, left leg, M76.821 - Posterior tibial tendinitis, right leg AMB Flexor Tendon / Plantar Fascia Injection Today M72.2 - Plantar fascial fibromatosis AMB Joint Injection/Aspiration Podiatry Today M77.8 - Other enthesopathies, not elsewhere classified Coding Level of Care Code Est Pt Level 3 (23026) Diagnoses Plantar fasciitis, bilateral M72.2 Achilles tendinitis of both lower extremities M76.61; M76.62 Laterality: bilateral Capsulitis of left foot M77.8 Posterior tibial tendinitis, right leg M76.821 Cavus deformity of both feet Q66.71; Q66.72 Tinea pedis of both feet B35.3 Laterality: bilateral CPT Codes Tendon Injection - Tendon Injection POD1: - Plantar Fascia Injection ([id number]) Joint injectio/aspiration Podiatry - Joint Injection POD1: LT - Injection of small joint LT ([id number]) Time Spent (min) 20
[2025-06-25 15:01] VITALS: BMI 38.4
== END 2025-06-25 15:05 | disposition home or self-care (01) ==
LOC: HO.HPODS 14:23
PROVIDERS: Visit Provider Student in an Organized Health Care Education/Training Program
DX: M72.2 Plantar fascial fibromatosis (principal); M76.61 Achilles tendinitis, right leg; M76.62 Achilles tendinitis, left leg; M77.8 Other enthesopathies, not elsewhere classified; M76.821 Posterior tibial tendinitis, right leg; Q66.71 Congenital pes cavus, right foot; Q66.72 Congenital pes cavus, left foot; B35.3 Tinea pedis; M79.672 Pain in left foot
CPT/HCPCS: 20550; 20600; 99213